=== PATIENT | male | born 1990 | race Two or more races ===

== ENCOUNTER 2023-01-10 09:01 | Emergency (ER) | payer OTHER ==
[~2023-01-10] VITALS: Ht 172.7 cm; Wt 68.0 kg
[2023-01-10] MEDS ORDERED: PEPCID AC10 MG PO (09:28)
[2023-01-10 10:54] LABS: HEMOGLOBIN 15.4 g/dL (13-16.00); MEAN CELL VOLUME 92.2 fL (80.0-100.00); MEAN CORPUSCULAR HEMOGLOBIN 32.3 pg (27.00-32.0); PLATELET COUNT 155 K/uL (150-450); RED BLOOD COUNT 4.77 M/uL (4.00-6.00); RED CELL DISTRIBUTION WIDTH 12.8 % (11.5-14.5)
[2023-01-10 11:47] LABS: URINE APPEARANCE Clear; URINE BILIRRUBIN Negative (NEGATIVE); URINE BLOOD Negative; URINE COLOR Yellow; URINE GLUCOSE Negative (NEGATIVE); URINE LEUKOCYTE Negative; URINE NITRATE Negative; URINE PROTEIN Negative (NEGATIVE)
[2023-01-10 11:51] LABS: URINE BACTERIA 1.2 uL (0.0-1933); URINE EPITHELIAL CELLS 0.9 uL (0.0-38.8); URINE RBC 1.4 uL (0.0-20.8); URINE WBC 1.3 uL (0.0-23.2)
[2023-01-10 11:58] LABS: ALBUMIN 4.1 gm/dL (3.4-5.0); BILIRUBIN TOTAL 0.86 mg/dL (0.3-1.2); CALCIUM 9.2 mg/dL (8.5-10.1); CREATININE SERUM 0.92 mg/dL (0.70-1.30); GFR 95.34; GLOBULINA 3.4 G/DL (2.4-3.5); TOTAL PROTEIN 7.5 gm/dL (6.4-8.2)
== END 2023-01-10 15:28 | disposition home or self-care (01) ==
LOC: ER 09:01
PROVIDERS: Emergency Medicine
DX: R10.9 Unspecified abdominal pain (principal); K80.50 Calculus of bile duct without cholangitis or cholecystitis without obstruction